=== PATIENT | female | born 1940 | race Caucasian/White ===

== ENCOUNTER 2022-02-03 23:17 | Emergency (ER) | payer MEDICARE ==
[2022-02-04 00:26] LABS: Bilirubin Negative (Negative); Blood, Urine Negative (Negative); Clarity Clear (Clear); Glucose, Urine (Dipstick) 100 mg/dL (Negative); Ketone, Urine Negative (Negative); Leukocyte Small (Negative); Nitrite Negative (Negative); Protein, Urine (Dipstick) Negative (Neg-Trace); Urobilinogen 0.2 mg/dL (Less than 2); pH, Urine 5.5 (5.0-9.0)
[2022-02-04 00:30] LABS: RBC/HPF 0-3 HPF (0-3)
== END 2022-02-04 01:14 | disposition home or self-care (01) ==
LOC: MADERS 23:17
DX: I10 Essential (primary) hypertension (principal); N39.0 Urinary tract infection, site not specified; E11.9 Type 2 diabetes mellitus without complications; Z79.4 Long term (current) use of insulin
CPT/HCPCS: 70450; 81003; 81015; 87086

== ENCOUNTER 2022-02-05 13:33 | Emergency (ER) | payer MEDICARE ==
[2022-02-05] MEDS ORDERED: diphenhydrAMINE 50 MG/ML VIAL ONE (14:10)
[2022-02-05] MEDS ORDERED: methylPREDNISolone Sod Succ/PF 125 MG/2 ML VIAL ONE (14:10)
== END 2022-02-05 17:05 | disposition home or self-care (01) ==
LOC: MADERS 13:33
DX: T78.3XXA Angioneurotic edema, initial encounter (principal); E11.9 Type 2 diabetes mellitus without complications; I10 Essential (primary) hypertension; Z79.4 Long term (current) use of insulin; Z79.899 Other long term (current) drug therapy
CPT/HCPCS: 94760; 96374; 96375; J1200; J2930

== ENCOUNTER 2025-01-13 11:53 | Emergency (ER) | payer MEDICARE ==
[2025-01-13 13:11] LABS: Glucose, Urine (Dipstick) 100 mg/dL (Negative); Leukocyte Small (Negative); Protein, Urine (Dipstick) Negative (Neg-Trace); Specific Gravity, Urine 1.015 (1.005-1.030)
[2025-01-13 13:11] LABS: #Basophils 0.2 thou/uL (0.0-0.2); #Eosinophils 0.2 thou/uL (0.0-0.7); #Lymphocytes 1.6 thou/uL (1.20-3.40); #Monocytes 0.6 thou/uL (0.11-0.59); #Neutrophils 5.0 thou/uL (1.40-6.50); %Basophils 2.0 % (0.0-1.0); %Eosinophils 2.7 % (0.0-10.0); %Lymphocytes 21.1 % (21.0-51.0); %Monocytes 8.4 % (0.0-10.0); %Neutrophils 65.8 % (42.0-75.0); Hematocrit 43.9 % (36.0-47.0); Hemoglobin 14.0 g/dL (12.0-16.0); Mean Corpuscular Hemoglobin 30.2 pg (27.0-31.0); Mean Corpuscular Volume 94.8 fl (78.0-98.0); Platelet Count 207 10x3/uL (130-400); Red Blood Cell (RBC) Count 4.64 mill/uL (4.20-5.40); White Blood Cell (WBC) Count 7.6 10x3/uL (4.8-10.8)
[2025-01-13 13:16] LABS: Bacteria/HPF Rare-Few HPF (None Seen); CAUTI Indications for Culture Dysuria,urgency,freq; RBC/HPF None Seen HPF (0-3)
[2025-01-13 13:17] LABS: Urine Culture Reflex No No
[2025-01-13 13:26] LABS: ALT (SGPT) 24 U/L (Less than 34); AST (SGOT) 38 U/L (11-34); Albumin 4.6 g/dL (3.1-4.5); Alkaline Phosphatase 51 U/L (40-110); Anion Gap 17 mmol/L (10-20); BUN (Urea Nitrogen) 21 mg/dL (9.8-20.1); Bilirubin, Total 0.6 mg/dL (0.3-1.2); Calc. Creatinine Clearance 0 mL/min (70-130); Calcium 9.7 mg/dL (7.8-10.44); Carbon Dioxide 26 mmol/L (23-31); Chloride 103 mmol/L (98-107); Globulin 3.1 g/dL (2.4-3.5); Glucose 187 mg/dL (83-110); Potassium 3.7 mmol/L (3.5-5.1); Sodium 142 mmol/L (136-145)
[2025-01-13] MEDS ORDERED: cloNIDine 0.1 MG TAB ONE (13:58)
== END 2025-01-13 14:48 | disposition home or self-care (01) ==
LOC: MADERS 11:53
DX: I10 Essential (primary) hypertension (principal); F41.9 Anxiety disorder, unspecified; E11.9 Type 2 diabetes mellitus without complications; Z79.4 Long term (current) use of insulin
CPT/HCPCS: 36415; 80053; 81001; 84443; 85025; 99283